=== PATIENT | male | born 1980 | race Hispanic/Latino ===

== ENCOUNTER 2021-09-16 13:00 | Day surgery (SDC) | payer OTHER ==
[~2021-09-16] VITALS: Ht 172.7 cm; Wt 86.1 kg
[~2021-09-16 13:00] MED LIST: AMIT25TA17 PO; D 50CAP2 PO; NS 1,000 ML IV ONE; OMEP40CA5 PO; SUMA25TA3 PO
[2021-09-16] MEDS ORDERED: propofoL 500 MG/50 ML VIAL As Ordered ONE (13:37)
[2021-09-16] MEDS ORDERED: LIDOCAINE 2% 100MG/5ML SDV (FOR ANES.) As Ordered ONE (13:37)
[2021-09-16] MEDS ORDERED: fentaNYL 100 MCG/2 ML INJECTION As Ordered ONE (13:37)
[2021-09-16 15:30] VITALS: BP 113/79
== END 2021-09-16 15:50 | disposition home or self-care (01) ==
LOC: M OPP 13:00
PROVIDERS: ATTEND Internal Medicine Gastroenterology
DX: Z12.11 Encounter for screening for malignant neoplasm of colon (principal); K22.89 Other specified disease of esophagus; R93.3 Abnormal findings on diagnostic imaging of other parts of digestive tract; R12 Heartburn; Z79.899 Other long term (current) drug therapy
CPT/HCPCS: 43239; 45378; 88305; J3010